=== PATIENT | male | born 1965 | race Caucasian/White ===

== ENCOUNTER 2017-06-28 12:11 | Emergency (ER) | payer OTHER ==
[~2017-06-28] VITALS: Ht 162.6 cm; Wt 75.0 kg
[~2017-06-28 12:11] MED LIST: CARB200T16 PO; LEVO.1 PO; ZONI1CAP26 PO
[2017-06-28 12:20] VITALS: BP 145/91; PULSE 62; RESP 20; TEMP 98.9; O2SAT 100
[2017-06-28] MEDS ORDERED: CELE20TA PO (12:25)
[2017-06-28] MEDS ORDERED: TEGR200T PO ×2 (12:25)
[2017-06-28] MEDS ORDERED: ZONI25CA2 PO (12:25)
[2017-06-28] MEDS ORDERED: LEVO.1 PO (12:25)
[2017-06-28 12:56] LABS: AUTOMATED NEUTROPHIL # 4.3 TH/MM3 (1.8-7.7); BASOPHIL % 0.3 % (0.0-2.0); EOSINOPHIL % 0.8 % (0.0-4.0); HEMATOCRIT 42.8 % (39.0-51.0); HEMOGLOBIN 14.8 GM/DL (13.0-17.0); LYMPH % 11.9 % (9.0-44.0); LYMPHOCYTE # 0.6 TH/MM3 (1.0-4.8); MEAN CELL VOLUME 94.1 FL (80.0-100.0); MEAN CORPUSCULAR HEMOGLOBIN 32.5 PG (27.0-34.0); MEAN CORPUSCULAR HGB CONC 34.6 % (32.0-36.0); MEAN PLATELET VOLUME 6.8 FL (7.0-11.0); MONOCYTE # 0.4 TH/MM3 (0-0.9); PLATELET COUNT 166 TH/MM3 (150-450); RED BLOOD COUNT 4.55 MIL/MM3 (4.50-5.90); RED CELL DISTRIBUTION WIDTH 13.3 % (11.6-17.2); WHITE BLOOD COUNT 5.4 TH/MM3 (4.0-11.0)
[2017-06-28 13:15] LABS: ALBUMIN 3.8 GM/DL (3.4-5.0); ALT (GPT) 26 U/L (12-78); AST (GOT) 20 U/L (15-37); BICARBONATE 28.9 MEQ/L (21.0-32.0); BLOOD UREA NITROGEN 15 MG/DL (7-18); CALCIUM 8.3 MG/DL (8.5-10.1); CHLORIDE 105 MEQ/L (98-107); CREATININE 0.95 MG/DL (0.60-1.30); GLOMERULAR FILTRATION RATE 84 ML/MIN (>89); GLUCOSE,RANDOM 112 MG/DL (74-106); SODIUM (NA) 141 MEQ/L (136-145)
--- NOTE | 2017-06-28 13:15 | PD ---
HPI Chief Complaint: Seizure Time Seen by Provider: 12:22 Travel History International Travel<30 days: No Contact w/Intl Traveler<30days: No Traveled to known affect area: No History of Present Illness HPI This is a 51-year-old male who presents to the emergency department having had a seizure. It was unwitnessed and he felt it coming so he went down to the ground. It is unclear how long the seizure lasted for. Currently patient feels back to normal. He has had seizures in the past. He says he has a seizure about once a month. He follows with Dr. Chamorro and takes Zonisamide and Tegretol. He did not miss any doses. He has been sick with some upper respiratory symptoms including rhinorrhea and cough. PFSH Past Medical History Hx Anticoagulant Therapy: No Arthritis: Yes (KNEES) Asthma: No Autoimmune Disease: No Blood Disorders: No Anxiety: No Depression: Yes (2002) Heart Rhythm Problems: No Cancer: No Cardiovascular Problems: No High Cholesterol: No Chemotherapy: No Chest Pain: No Congestive Heart Failure: No COPD: No Cerebrovascular Accident: No Diabetes: No Diminished Hearing: No Endocrine: No GERD: No Genitourinary: No Hiatal Hernia: No Immune Disorder: No Kidney Stones: No Musculoskeletal: No Neurologic: Yes Psychiatric: No Reproductive: No Respiratory: No Immunizations Current: Yes Migraines: No Radiation Therapy: No Renal Failure: No Schizophrenia: Yes Seizures: Yes Sickle Cell Disease: No Sleep Apnea: No Thyroid Disease: Yes (UNDERACTIVE THYROID) Ulcer: No Tetanus Vaccination: > 5 Years PNEUMOCCOCAL Vaccine (Year): 3 Past Surgical History Abdominal Surgery: No AICD: No Arteriovenous Shunt: No Cardiac Surgery: Yes (PACEMAKER 90'S FOR 3 YEARS AND THEN REMOVED) Ear Surgery: No Endocrine Surgery: No Eye Surgery: No Genitourinary Surgery: No Gynecologic Surgery: No Insulin Pump: No Joint Replacement: No Oral Surgery: No Pacemaker: No Thoracic Surgery: No Tonsillectomy: Yes Other Surgery: Yes (TONSILS) Social History Alcohol Use: No (LAST DRINK 2002) Tobacco Use: No Substance Use: No Allergies-Medications (Allergen,Severity, Reaction): Coded Allergies: levetiracetam (Unverified Allergy, Severe, 06/28/17) "MAKE ME ACT LIKE I'M DRUNK OR INTOXICATED" phenobarbital (Unverified Allergy, Severe, 06/28/17) "MAKE ME ACT LIKE I'M DRUNK OR INTOXICATED" Reported Meds & Prescriptions Reported Meds & Active Scripts Active Reported Celexa (Citalopram Hydrobromide) 20 Mg Tab 20 Mg PO DAILY Zonisamide 25 Mg Cap 25 Mg PO DAILY Synthroid (Levothyroxine Sodium) 100 Mcg Tab 100 Mcg PO DAILY Tegretol (Carbamazepine) 200 Mg Tab 200 Mg PO HS Tegretol (Carbamazepine) 200 Mg Tab 400 Mg PO DAILY Review of Systems Except as stated in HPI: all other systems reviewed are Neg Physical Exam Narrative GENERAL:Well appearing, no acute distress SKIN: Focused skin assessment warm and dry. HEAD: Atraumatic. Normocephalic. EYES: Left eye exotropia. ENT: Moist mucous membranes NECK: Trachea midline. CARDIOVASCULAR: Regular rate and rhythm. No murmur appreciated. RESPIRATORY: Clear to auscultation. Breath sounds equal bilaterally. GASTROINTESTINAL: Abdomen soft, non-tender, nondistended. MUSCULOSKELETAL: No obvious deformities. NEUROLOGICAL: Awake and alert. No obvious cranial nerve deficits. No upper or lower extremity drift. PSYCHIATRIC: Appropriate mood and affect; insight and judgment normal. Data Data Last Documented VS Vital Signs Date Time Temp Pulse Resp B/P (MAP) Pulse Ox O2 Delivery O2 Flow Rate FiO2 06/28/17 12:20 98.9 62 20 145/91 (109) 100 Orders Orders Complete Blood Count With Diff (06/28/17 12:22) Comprehensive Metabolic Panel (06/28/17 12:22) Carbamazepine (Tegretol) (06/28/17 12:22) Labs Laboratory Tests Test 06/28/17 12:30 White Blood Count 5.4 TH/MM3 Red Blood Count 4.55 MIL/MM3 Hemoglobin 14.8 GM/DL Hematocrit 42.8 % Mean Corpuscular Volume 94.1 FL Mean Corpuscular Hemoglobin 32.5 PG Mean Corpuscular Hemoglobin Concent 34.6 % Red Cell Distribution Width 13.3 % Platelet Count 166 TH/MM3 Mean Platelet Volume 6.8 FL Neutrophils (%) (Auto) 79.0 % Lymphocytes (%) (Auto) 11.9 % Monocytes (%) (Auto) 8.0 % Eosinophils (%) (Auto) 0.8 % Basophils (%) (Auto) 0.3 % Neutrophils # (Auto) 4.3 TH/MM3 Lymphocytes # (Auto) 0.6 TH/MM3 Monocytes # (Auto) 0.4 TH/MM3 Eosinophils # (Auto) 0.0 TH/MM3 Basophils # (Auto) 0.0 TH/MM3 CBC Comment DIFF FINAL Differential Comment Blood Urea Nitrogen 15 MG/DL Creatinine 0.95 MG/DL Random Glucose 112 MG/DL Total Protein 7.2 GM/DL Albumin 3.8 GM/DL Calcium Level 8.3 MG/DL Alkaline Phosphatase 72 U/L Aspartate Amino Transf (AST/SGOT) 20 U/L Alanine Aminotransferase (ALT/SGPT) 26 U/L Total Bilirubin 0.3 MG/DL Sodium Level 141 MEQ/L Potassium Level 3.7 MEQ/L Chloride Level 105 MEQ/L Carbon Dioxide Level 28.9 MEQ/L Anion Gap 7 MEQ/L Estimat Glomerular Filtration Rate 84 ML/MIN Carbamazepine (Tegretol) Level 11.8 MCG/ML MDM Medical Decision Making Medical Screen Exam Complete: Yes Emergency Medical Condition: Yes Interpretation(s) Afebrile, no tachycardia no leukocytosis Electrolytes are reassuring Carbamazepine level is 11.8 Differential Diagnosis seizure, electrolyte abnormality, medication noncompliance Narrative Course This is a 51-year-old male who presents to the emergency department with a seizure. Patient has a history of seizure disorder. He has been taking all his medications. He normally has a seizure once a month or so. He follows with Dr. Chamorro. He has no injuries. Labs are all reassuring including a normal carbamazepine level. Patient can follow-up with Dr. Chamorro as an outpatient. Diagnosis Primary Impression: Seizure Patient Instructions: General Instructions Additional Instructions: If you have multiple seizures in a row or a seizure that lasts for more than 5 minutes return to the emergency room. Follow up with Dr. Chamorro as soon as possible. Med/Other Pt SpecificInfo: No Change to Meds Disposition: 01 DISCHARGE HOME Condition: Stable Ghislaine,Inés Franklin MD Jun 28, 2017 13:15
[2017-06-28 13:17] LABS: ALKALINE PHOSPHATASE 72 U/L (45-117); CARBAMAZEPINE (TEGRETOL) 11.8 MCG/ML (4.0-12.0); TOTAL BILIRUBIN ADULT 0.3 MG/DL (0.2-1.0); TOTAL PROTEIN 7.2 GM/DL (6.4-8.2)
[2017-06-28 14:13] VITALS: BP 129/87
== END 2017-06-28 14:15 | disposition home or self-care (01) ==
LOC: NEPD 12:11
DX: G40.909 Epilepsy, unspecified, not intractable, without status epilepticus (principal); H50.10 Unspecified exotropia; M17.9 Osteoarthritis of knee, unspecified; F32.9 Major depressive disorder, single episode, unspecified; F20.9 Schizophrenia, unspecified; E07.89 Other specified disorders of thyroid; Z79.899 Other long term (current) drug therapy; Z88.8 Allergy status to other drugs, medicaments and biological substances
CPT/HCPCS: 80053; 80156; 85025; 99283